=== PATIENT | female | born 1970 | race Hispanic/Latino ===

== ENCOUNTER 2019-04-10 11:40 | Emergency (ER) | payer OTHER ==
--- OUTSIDE RECORDS SUMMARY | 2019-04-10 11:45 | XMS REPORT ---
:1970 [facility] Jevon Ugarte [address] [place] [id number] Care Team Providers Name Role Phone ZI CHO Unavailable Unavailable DOMINIQUE COOL Unavailable Unavailable Problems This patient has no known problems. Allergies, Adverse Reactions, Alerts This patient has no known allergies or adverse reactions. Medications This patient has no known medications. Results Test Description Test Time Test Comments Text Results Atomic Results Result Comments POCT-ACT 2017-11-08 07:09:00 Test Item Value Reference Range Comments ACTIVATED CLOTTING TIME (BEAKER) (test 274 sec TESTED AT [facility] [address] jfma=126) [place] [address] [id number] 07:09:00 Test Item Value Reference Range Comments ACTIVATED CLOTTING TIME 290 sec TESTED AT [facility] [address] (BEAKER) (test xvem=827) [place] [address] [id number] 07:09:00 Test Item Value Reference Range Comments ACTIVATED CLOTTING TIME 285 sec [facility] [address] (BEAKER) (test qgzx=832) [place] [address] [id number] 05:31:00 Test Item Value Reference Range Comments BLOOD UREA NITROGEN (BEAKER) (test xtgo=713) 19 mg/dL 7-21 [id number] 05:31:00 Test Item Value Reference Range Comments SODIUM (BEAKER) (test rugd=218) 136 meq/L 136-145 POTASSIUM (BEAKER) (test nbct=940) 4.0 meq/L 3.5-5.1 CHLORIDE (BEAKER) (test eytp=431) 106 meq/L 98-107 CO2 (BEAKER) (test fkfo=245) 20 meq/L 22-29 [id number] 05:31:00 Test Item Value Reference Range Comments CREATININE (BEAKER) (test 1.02 mg/dL 0.57-1.25 ilyp=725) EGFR (BEAKER) (test 59 mL/min/1.73 sq m ESTIMATED GFR IS NOT chet=2092) ACCURATE CREATININE CLEARANCE IN PREDICTING GLOMERULAR FILTRATION RATE. ESTIMATED GFR IS NOT APPLICABLE FOR DIALYSIS PATIENTS. CBC (HEMOGRAM ONLY)2017-11-07 04:52:00 Test Item Value Reference Range Comments WHITE BLOOD CELL COUNT (BEAKER) (test gobb=880) 5.3 K/ L 3.5-10.5 RED BLOOD CELL COUNT (BEAKER) (test gulu=140) 3.45 M/ L 3.93-5.22 HEMOGLOBIN (BEAKER) (test wzth=759) 10.5 GM/DL 11.2-15.7 HEMATOCRIT (BEAKER) (test gaif=896) 32.5 % 34.1-44.9 MEAN CORPUSCULAR VOLUME (BEAKER) (test dzxo=107) 94.2 fL 79.4-94.8 MEAN CORPUSCULAR HEMOGLOBIN (BEAKER) (test 30.4 pg 25.6-32.2 gnek=829) MEAN CORPUSCULAR HEMOGLOBIN CONC (BEAKER) (test 32.3 GM/DL 32.2-35.5 fbpj=446) RED CELL DISTRIBUTION WIDTH (BEAKER) (test 13.3 % 11.7-14.4 jcia=186) PLATELET COUNT (BEAKER) (test deez=022) 101 K/CU MM 150-450 MEAN PLATELET VOLUME (BEAKER) (test ryfa=835) 11.6 fL 9.4-12.3 NUCLEATED RED BLOOD CELLS (BEAKER) (test 0 /100 WBC 0-0 hkwa=204) [id number] 15:23:00 Test Item Value Reference Range Comments ACTIVATED CLOTTING TIME 131 sec TESTED AT [facility] (BEAKER) (test pugv=295) [facility] [address] [id number] 06:41:00 Test Item Value Reference Range Comments MAGNESIUM (BEAKER) (test ipov=933) 2.1 mg/dL 1.6-2.6 BASIC METABOLIC [id number] 06:41:00 Test Item Value Reference Range Comments SODIUM (BEAKER) (test 136 meq/L 136-145 lrvu=236) POTASSIUM (BEAKER) (test 3.8 meq/L 3.5-5.1 zgal=425) CHLORIDE (BEAKER) (test 100 meq/L 98-107 xkbs=181) CO2 (BEAKER) (test 27 meq/L 22-29 lnmc=364) BLOOD UREA NITROGEN 18 mg/dL 7-21 (BEAKER) (test toum=229) CREATININE (BEAKER) (test 0.99 mg/dL 0.57-1.25 akzd=183) GLUCOSE RANDOM (BEAKER) 94 mg/dL 70-105 (test ukqu=966) CALCIUM (BEAKER) (test 8.9 mg/dL 8.4-10.2 afte=197) EGFR (BEAKER) (test 61 mL/min/1.73 sq m ESTIMATED GFR IS NOT kijq=4532) ACCURATE CREATININE CLEARANCE IN PREDICTING GLOMERULAR FILTRATION RATE. ESTIMATED GFR IS NOT APPLICABLE FOR DIALYSIS PATIENTS. PROTHROMBIN [id number] 06:40:00 Test Item Value Reference Range Comments PROTIME (BEAKER) (test hjzn=266) 15.5 seconds 11.7-14.7 INR (BEAKER) (test vnrz=826) 1.2 <=5.9 RECOMMENDED COUMADIN/WARFARIN INR THERAPY RANGESSTANDARD DOSE: 2.0 - 3.0 Includes: PROPHYLAXIS forvenous thrombosis, systemic embolization; TREATMENT for venous thrombosis and/or pulmonary embolus.HIGH RISK: Target INR is 2.5-3.5 for patients with mechanical heart valves.Within 24 hours, if on CoumadinCBC ( HEMOGRAM ONLY)2017-11-06 06:29:00 Test Item Value Reference Range Comments WHITE BLOOD CELL COUNT (BEAKER) (test acgr=611) 3.5 K/ L 3.5-10.5 RED BLOOD CELL COUNT (BEAKER) (test qmlf=503) 3.76 M/ L 3.93-5.22 HEMOGLOBIN (BEAKER) (test cwee=564) 11.3 GM/DL 11.2-15.7 HEMATOCRIT (BEAKER) (test uwwx=346) 34.9 % 34.1-44.9 MEAN CORPUSCULAR VOLUME (BEAKER) (test ihup=078) 92.8 fL 79.4-94.8 MEAN CORPUSCULAR HEMOGLOBIN (BEAKER) (test 30.1 pg 25.6-32.2 gufq=410) MEAN CORPUSCULAR HEMOGLOBIN CONC (BEAKER) (test 32.4 GM/DL 32.2-35.5 mvcs=051) RED CELL DISTRIBUTION WIDTH (BEAKER) (test 13.3 % 11.7-14.4 mpkk=396) PLATELET COUNT (BEAKER) (test vxyg=228) 129 K/CU MM 150-450 MEAN PLATELET VOLUME (BEAKER) (test msub=188) 11.5 fL 9.4-12.3 NUCLEATED RED BLOOD CELLS (BEAKER) (test 0 /100 WBC 0-0 sbnc=968) CT, HEART, [id number] 18:09:00Reason for exam:->a-fibAddendum BeginsREPORT STATUS:A ADDENDUM: Study reviewed by radiology. Agree with the nonvascular findings as described below. Signed: Nitesh Saini MDReport Verified Date/Time: 11/05/2017 18:09:37 Reading Location: [place] [address] Angio Body Reading RoomAddendum EndsFINAL REPORT CT angiography of the pulmonary veins, 05 November 2017 INDICATION: This is 46 years old female with history of atrial fibrillation, and Tetralogy of Fallot, presented here for pulmonary vein ostial mapping. This study is performed in an attempt to avoid invasive procedure. TECHNIQUE: Spiral acquisition during intravenous contrast administration using a Daniela multidetector multislice cardiac CT scanner without prospective ECG triggering. Multiplanar reconstructions were performed interactively by the interpreting physician using an independent ([employer]) workstation. Pleaserefer to the contrast sheet scanned in the EPIC system for the amount and route of contrast given. This exam was performed according to our departmental dose-optimisation programme, which includes automated exposure control, adjustment of the mA and/or kV according to patient size and/or use of iterative reconstruction technique. Dose modulation, iterative reconstruction, and/or weight based adjustment of the mA/kV was utilized to reduce the radiation dose to as low as reasonably achievable. FINDINGS: VASCULAR: The pericardium appears normal. No pericardial effusion is identified. The central pulmonary artery is normal in calibre. There is no evidence of central pulmonary artery embolism. The thoracic aorta is normal in course, calibre, and contour. No ectasia or aneurysmal dilation is identified. The aortic arch is left sided. There is no evidence for acute aortic pathology. The arch vessel branching pattern is normal, and the origins of the arch branch vessels are all widely patent. The left common carotid artery arises from the normal artery, common variant. This study is a dedicated pulmonary vein study and no dynamic data is provided. No obvious VSD is identified in the repair site is likely located at image 81 of the pulmonary veins sequence. Correlate with echocardiography. The cardiac chambers demonstrate normal atrioventricular and ventriculoarterial concordance, and systemic andpulmonary venous return. The left ventricle is normal in size, and no abnormal mass is identified.Patient has a diagnosis of tetralogy. In this examination, by visual estimation, the right ventricleis smaller in size than the left ventricle. No obvious right ventricular hypertrophy is identified. Finally, some artefact is identified in the right ventricular outflow tract, suggesting prior repair.Finally, the central pulmonary artery is not prominent. The coronary artery origins are normal. No evidence of anomalous coronary artery origin is identified. This is a nongated examination, however, no obvious coronary artery calcification is identified. No coronary calcification is present. The leftatrium is mildly prominent. Right atrial prominence is identified. The IVC and hepatic veins also prominent. No thrombus is visualized in the left atrial appendage. Pulmonary vein morphology is normal with pairs of pulmonary veins on each side of the left atrium. There is no evidence for pulmonary vein stenosis. Quantitative pulmonary vein ostial mapping (measured utilizing MPR analysis) is as follows: Pulmonary vein Major axis Minor axis Cross-sectional area Right upper 22 mm 14 mm 2.5 fi5Ftrvx lower 21 mm 20 mm 3.3 pj0Kvyp upper 14 mm 9 mm 1.1 fw3Hjaw lower 2.mm 10 mm 1.8 cm2 NON-VASCULAR: The visualised thyroid gland appears unremarkable. The chestwall and mediastinum appears normal. Patient is post median sternotomy. The RV free wall is immediately behind the sternum, for example image 34 of the full [id number] series. No significant adenopathy is identified in the mediastinum. In the lung windows, no obvious endobronchial lesion is seen, and no pleural effusion is identified. Four, no suspicious pulmonary nodule is noted. Limited images of the upper abdomen reveals no gross abnormality. No acute bony pathology is identified. IMPRESSIONS: 1. Left atrial enlargement is identified. The left atrial appendage is well seen and no thrombus is identified. The left atrial appendage morphologies chicken wing. Normal coronary artery origins. 2. Patient is post Tetralogy of Fallot repair. Interestingly, the RV appears not to be dilated. No obvious RV age is identified. Right atrial prominence is noted as well as prominence of the IVC and hepatic veins. Artifact is seen likely represent prior repair at the level of the right ventricular outflow tract. Finally, the prior VSD repair site is identified, at image 81 of the pulmonary veins series; the repair site is somewhat prominent/dilated. Correlate with echocardiography. No obvious shunting is identified though no dynamic data is provided. 2. Pulmonary vein morphology is normal with pairs of pulmonary veins bilaterally. There is no evidence for pulmonary vein stenosis. Quantitative pulmonary vein ostial mapping is as noted above. 3. Normal thoracic aorta. Left sided aortic arch. No ectasia or aneurysmal dilation is identified. 4. No acute pulmonary pathology. 5. Other findings as described above. 6. An addendum will be dictated regarding the non-vascular findings by the [facility] Radiologist. Signed: Edwin Garcia Verified Date/Time: 11/05/2017 09:20:25 Reading Location: [place] [address] Cardiology MRI [id number] 14:01:00 Test Item Value Reference Range Comments MAGNESIUM (BEAKER) (test 2.2 mg/dL 1.6-2.6 Specimen slightly hemolyzed tmqz=700) BASIC METABOLIC [id number] 21:59:00 Test Item Value Reference Range Comments SODIUM (BEAKER) (test 139 meq/L 136-145 fgba=237) POTASSIUM (BEAKER) (test 3.8 meq/L 3.5-5.1 Specimen slightly qvli=701) hemolyzed CHLORIDE (BEAKER) (test 108 meq/L 98-107 cegp=131) CO2 (BEAKER) (test 22 meq/L 22-29 nkpf=432) BLOOD UREA NITROGEN 14 mg/dL 7-21 (BEAKER) (test wrgk=897) CREATININE (BEAKER) (test 0.79 mg/dL 0.57-1.25 Specimen slightly hjvy=188) hemolyzed GLUCOSE RANDOM (BEAKER) 86 mg/dL 70-105 (test rbcx=926) CALCIUM (BEAKER) (test 8.5 mg/dL 8.4-10.2 qiut=210) EGFR (BEAKER) (test 79 mL/min/1.73 sq m ESTIMATED GFR IS NOT pgje=2749) ACCURATE CREATININE CLEARANCE IN PREDICTING GLOMERULAR FILTRATION RATE. ESTIMATED GFR IS NOT APPLICABLE FOR DIALYSIS PATIENTS. CBC W/PLT COUNT & AUTO [id number] 21:42:00 Test Item Value Reference Range Comments WHITE BLOOD CELL COUNT (BEAKER) (test srdp=726) 3.7 K/ L 3.5-10.5 RED BLOOD CELL COUNT (BEAKER) (test zzvm=112) 3.92 M/ L 3.93-5.22 HEMOGLOBIN (BEAKER) (test jvbb=114) 12.4 GM/DL 11.2-15.7 HEMATOCRIT (BEAKER) (test pcwp=722) 38.5 % 34.1-44.9 MEAN CORPUSCULAR VOLUME (BEAKER) (test yjqw=621) 98.2 fL 79.4-94.8 MEAN CORPUSCULAR HEMOGLOBIN (BEAKER) (test 31.6 pg 25.6-32.2 htsh=437) MEAN CORPUSCULAR HEMOGLOBIN CONC (BEAKER) (test 32.2 GM/DL 32.2-35.5 dgnu=473) RED CELL DISTRIBUTION WIDTH (BEAKER) (test 16.3 % 11.7-14.4 azej=238) PLATELET COUNT (BEAKER) (test benw=436) 116 K/CU MM 150-450 MEAN PLATELET VOLUME (BEAKER) (test tlju=469) 11.4 fL 9.4-12.3 NUCLEATED RED BLOOD CELLS (BEAKER) (test 0 /100 WBC 0-0 xpoh=819) NEUTROPHILS RELATIVE PERCENT (BEAKER) (test 62 % ufiv=952) LYMPHOCYTES RELATIVE PERCENT (BEAKER) (test 29 % yoit=968) MONOCYTES RELATIVE PERCENT (BEAKER) (test 7 % wssv=758) EOSINOPHILS RELATIVE PERCENT (BEAKER) (test 1 % jumr=170) BASOPHILS RELATIVE PERCENT (BEAKER) (test 1 % tiwn=956) NEUTROPHILS ABSOLUTE COUNT (BEAKER) (test 2.26 K/ L 1.56-6.13 xgkz=538) LYMPHOCYTES ABSOLUTE COUNT (BEAKER) (test 1.06 K/ L 1.18-3.74 atru=774) MONOCYTES ABSOLUTE COUNT (BEAKER) (test 0.25 K/ L 0.24-0.36 ujef=874) EOSINOPHILS ABSOLUTE COUNT (BEAKER) (test 0.04 K/ L 0.04-0.36 mslx=263) BASOPHILS ABSOLUTE COUNT (BEAKER) (test 0.04 K/ L 0.01-0.08 eqvp=677) IMMATURE GRANULOCYTES-RELATIVE PERCENT (BEAKER) 0 % 0-1 (test gpib=9849) [id number] 05:25:00 Test Item Value Reference Range Comments PROTIME (BEAKER) (test pooi=186) 21.2 seconds 11.7-14.7 INR (BEAKER) (test pbyj=659) 1.8 <=5.9 PARTIAL THROMBOPLASTIN TIME (BEAKER) (test 40.9 seconds 22.5-36.0 qqbn=248) RECOMMENDED COUMADIN/WARFARIN INR THERAPY RANGESSTANDARD DOSE: 2.0 - 3.0 Includes: PROPHYLAXIS forvenous thrombosis, systemic embolization; TREATMENT for venous thrombosis and/or pulmonary embolus.HIGH RISK: Target INR is 2.5-3.5 for patients with mechanical heart valves.PROTHROMBIN TIME/[id number] 05:23: 00 Test Item Value Reference Range Comments PROTIME (BEAKER) (test azip=441) 21.2 seconds 11.7-14.7 INR (BEAKER) (test paam=733) 1.8 <=5.9 RECOMMENDED COUMADIN/WARFARIN INR THERAPY RANGESSTANDARD DOSE: 2.0 - 3.0 Includes: PROPHYLAXIS forvenous thrombosis, systemic embolization; TREATMENT for venous thrombosis and/or pulmonary embolus.HIGH RISK: Target INR is 2.5-3.5 for patients with mechanical heart valves.[id number] 18:15:00 Test Item Value Reference Range Comments MAGNESIUM (BEAKER) (test ldqc=452) 2.2 mg/dL 1.6-2.6 BASIC METABOLIC [id number] 18:15:00 Test Item Value Reference Range Comments SODIUM (BEAKER) (test 140 meq/L 136-145 hecs=074) POTASSIUM (BEAKER) (test 3.6 meq/L 3.5-5.1 qgzz=932) CHLORIDE (BEAKER) (test 107 meq/L 98-107 ttdy=798) CO2 (BEAKER) (test 26 meq/L 22-29 wslb=050) BLOOD UREA NITROGEN 19 mg/dL 7-21 (BEAKER) (test wdnm=177) CREATININE (BEAKER) (test 0.90 mg/dL 0.57-1.25 agnn=748) GLUCOSE RANDOM (BEAKER) 93 mg/dL 70-105 (test ldqo=452) CALCIUM (BEAKER) (test 9.2 mg/dL 8.4-10.2 atlm=775) EGFR (BEAKER) (test 68 mL/min/1.73 sq m ESTIMATED GFR IS NOT utsv=3445) ACCURATE CREATININE CLEARANCE IN PREDICTING GLOMERULAR FILTRATION RATE. ESTIMATED GFR IS NOT APPLICABLE FOR DIALYSIS PATIENTS. CBC W/PLT COUNT & AUTO [id number] 17:35:00 Test Item Value Reference Range Comments WHITE BLOOD CELL COUNT (BEAKER) (test ghfg=360) 5.0 K/ L 3.5-10.5 RED BLOOD CELL COUNT (BEAKER) (test uyse=648) 4.12 M/ L 3.93-5.22 HEMOGLOBIN (BEAKER) (test bsac=911) 11.9 GM/DL 11.2-15.7 HEMATOCRIT (BEAKER) (test xaby=861) 36.4 % 34.1-44.9 MEAN CORPUSCULAR VOLUME (BEAKER) (test ybuu=498) 88.3 fL 79.4-94.8 MEAN CORPUSCULAR HEMOGLOBIN (BEAKER) (test 28.9 pg 25.6-32.2 puej=087) MEAN CORPUSCULAR HEMOGLOBIN CONC (BEAKER) (test 32.7 GM/DL 32.2-35.5 zwhn=218) RED CELL DISTRIBUTION WIDTH (BEAKER) (test 12.6 % 11.7-14.4 orzc=027) PLATELET COUNT (BEAKER) (test dqfb=723) 143 K/CU MM 150-450 MEAN PLATELET VOLUME (BEAKER) (test wrwd=088) 12.0 fL 9.4-12.3 NUCLEATED RED BLOOD CELLS (BEAKER) (test 0 /100 WBC 0-0 gkuj=765) NEUTROPHILS RELATIVE PERCENT (BEAKER) (test 69 % udam=320) LYMPHOCYTES RELATIVE PERCENT (BEAKER) (test 22 % hykm=653) MONOCYTES RELATIVE PERCENT (BEAKER) (test 7 % kefj=824) EOSINOPHILS RELATIVE PERCENT (BEAKER) (test 1 % ihgj=195) BASOPHILS RELATIVE PERCENT (BEAKER) (test 1 % wtxe=625) NEUTROPHILS ABSOLUTE COUNT (BEAKER) (test 3.47 K/ L 1.56-6.13 taqn=175) LYMPHOCYTES ABSOLUTE COUNT (BEAKER) (test 1.12 K/ L 1.18-3.74 snuu=795) MONOCYTES ABSOLUTE COUNT (BEAKER) (test 0.35 K/ L 0.24-0.36 ncux=194) EOSINOPHILS ABSOLUTE COUNT (BEAKER) (test 0.03 K/ L 0.04-0.36 mgap=986) BASOPHILS ABSOLUTE COUNT (BEAKER) (test 0.03 K/ L 0.01-0.08 uuhm=307) IMMATURE GRANULOCYTES-RELATIVE PERCENT (BEAKER) 0 % 0-1 (test uluo=0745)
[2019-04-10] MEDS ORDERED: NA CHLORIDE 0.9% 1,000 ML ONE (12:18)
[2019-04-10] MEDS ORDERED: ONDANSETRON 4 MG/2 ML VIAL ONE (12:18)
[2019-04-10 12:37] LABS: Absolute Lymphocytes (CBC) 0.8 K/uL (0.7-4.9); Basophils % 1.5 % (0-1.3); Hematocrit 38.1 % (36.0-45.0); Lymphocytes % 22.4 % (15.3-44.8); MPV 10.4 fL (7.6-11.3); RBC Red Blood Cell Count 4.15 M/uL (3.86-4.86)
[2019-04-10 12:43] LABS: Protime INR 1.21
[2019-04-10 12:50] LABS: Potassium 3.7 mmol/L (3.5-5.1)
[2019-04-10 12:53] LABS: Urine Blood TRACE (NEG); Urine Glucose NEGATIVE (NEG); Urine Protein TRACE (NEG); Urine Specific Gravity 1.025 (1.005-1.030); Urine pH 5.5 (5.0-7.0)
--- NOTE | 2019-04-10 13:21 | RAD REPORT ---
EXAM DESCRIPTION: US - Abdomen Exam Limited - 04/10/2019 1:03 pm CLINICAL HISTORY: ABD PAIN COMPARISON: Abdomen Exam Complete dated 10/08/2015 FINDINGS: Several small mobile gallstones are identified similar to the 2016 study. Gallbladder wall is slightly thickened and there is a small amount of pericholecystic fluid present. Correlation is n eeded with any acute cholecystitis exam findings. No common duct stone or biliary tree dilatation identified. IMPRESSION: Gallstones, wall thickening and pericholecystic fluid. Correlation is needed with clinic al findings of acute cholecystitis. No duct stone or biliary tree dilatation.
--- NOTE | 2019-04-10 13:40 | RAD REPORT ---
EXAM DESCRIPTION: CT - Abdomen Pelvis W Contrast - 04/10/2019 1:13 pm CLINICAL HISTORY: ABD PAIN, patient indicates right upper abdominal pain and nausea for 1 week COMPARISON: CT study August 2011, ultrasound study April 10, 2019 TECHNIQUE: Biphasic, helical CT imaging of the abdomen and pelvis was performed following 100 ml non -ionic IV contrast. No oral contrast. All CT scans are performed using dose optimization technique as appropriate and may include automated exposure control or mA/KV adjustment according to patient size. FINDINGS: Small right pleural effusion is present. Cardiomegaly is present. No pericardial thickenin g or effusion. A heterogeneous, mottled enhancement pattern is seen in the liver. Central hepatic veins are enlarged . IVC is dilated extending into the right atrium. Hepatic vein enlargement is progressive from 2011. Mottled liver enhancement pattern is likely the affects of diminished cardiac function. A focal liver lesion is not seen. No splenomegaly or focal splenic finding. No pancreatic or peripancreatic acute finding. Multiple gallstones are identified. There is gallbladder wall thickening and pericholecystic fluid. Patient has a small amount of ascites around the liver and spleen. Small amount of fluid collects in the dependent portion of the pelvis. Renal function is symmetric. No pyelonephritis or acute parenchymal process. Renal parenchymal enhanc ement pattern would also indicate a decrease in cardiac function. No solid mass lesion. Contracted ur inary bladder shows no gross abnormality. No adrenal abnormalities. No dilated bowel. No focal bowel wall thickening or mass. Appendicitis is not suspected. No free air or pneumatosis. No hernia, mass or bulky lymphadenopathy. Uterus is slightly lobulated probably from small fibroids. Primary ovarian process is not suspected. Prominent veins are seen in the pelvis. No suspicious bony findings. IMPRESSION: Cholelithiasis, gallbladder wall thickening and pericholecystic fluid. Correlation is ne eded with any acute cholecystitis clinical findings. Patient does have a small right pleural effusion and a small amount of ascites which may be unrelated to the gallbladder and could explain the pericholecystic fluid. Mottled enhancement pattern of the liver and dilated hepatic veins and IVC likely reflecting right-si de heart failure. Correlation is needed with clinical findings of diminished cardiac function. No acute or GI finding.
[2019-04-10] MEDS ORDERED: METRONIDAZOLE 500mg IVPB 500 MG/100 ML BAG IV ONE (14:08)
[2019-04-10] MEDS ORDERED: FENTANYL CITR 100 MCG/2 ML ONE (14:08)
[2019-04-10] MEDS ORDERED: CEFTRIAXONE/SWI 1gm 1 GM/10 ML SYR ONE (14:08)
--- NOTE | 2019-04-10 15:06 | ER ---
Nurse's Notes [facility] Name: Stephany Dominguez Age: 48 yrs Sex: Female : 1970 Arrival Date: 04/10/2019 Time: 11:42 Bed 8 Private MD: Una Jeffery K Diagnosis: Acute cholecystitis Presentation: 04/10 11:49 Presenting complaint: Patient states: Dr. Jeffery sent pt cynthia to right upper abdominal [facility] pain and nausea that started last week, "When I laid down I got a real bad right back and shoulder pain. and I feel really tired." Note from Dr. Jeffery states "Pt with hx of a. fib, tetralogy of Fallot repair, anemia, now with abdominal pain and swelling, weakness, and rapid HR". Transition of care: patient was received from another setting of care (ambulatory primary care physician practice), Dr. Jeffery. Onset of symptoms was April 04, 2019. Risk Assessment: Do you want to hurt yourself or someone else? Patient reports no desire to harm self or others. Initial Sepsis Screen: Does the patient meet any 2 criteria? No. Patient's initial sepsis screen is negative. Does the patient have a suspected source of infection? No. Patient's initial sepsis screen is negative. Care prior to arrival: None. 11:49 Method Of Arrival: Ambulatory [facility] 11:49 Acuity: REG 3 jl7 Triage Assessment: 12:00 General: Appears in no apparent distress. uncomfortable, Behavior is cooperative, bp appropriate for age, anxious. Pain: Complains of pain in right upper quadrant. EENT: No deficits noted. Neuro: No deficits noted. Cardiovascular: No deficits noted. Respiratory: No deficits noted. GI: Reports upper abdominal pain. : No signs and/or symptoms were reported regarding the genitourinary system. Derm: No deficits noted. Musculoskeletal: No deficits noted. 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 - Social history:: Smoking status: Patient/guardian denies using tobacco. - Ebola Screening: : No symptoms or risks identified at this time. - Family history:: not pertinent. - Hospitalizations: : No recent hospitalization is reported. Screenin:04 Abuse screen: Denies threats or abuse. Denies injuries from another. Nutritional bp screening: No deficits noted. Tuberculosis screening: No symptoms or risk factors identified. Fall Risk None identified. Assessment: 12:00 General: SEE TRIAGE NOTE. bp 14:00 Reassessment: PT RETURNED FROM [place] AND [place]. AT [facility]. bp 15:04 Reassessment: TRANSFER PENDING. VS STABLE. bp 16:18 Reassessment: REPORT CALLED TO LUIS TANG AT [facility]. TRANSPORT PENDING. bp 17:31 Reassessment: EMS AT [facility] FOR TRANSPORT. bp Vital Signs: 11:54 BP 98 / 84; Pulse 114; Resp 19 S; Temp 97.6(O); Pulse Ox 96% on R/A; Weight 70.76 kg jl7 (R); Height 5 ft. 6 in. (167.64 cm) (R); Pain 4/10; 14:03 BP 123 / 88; Pulse 66; Resp 17; Pulse Ox 98% ; bp 15:03 BP 120 / 90; Pulse 100; Resp 16; Pulse Ox 99% ; bp 16:18 BP 123 / 83; Pulse 115; Resp 18; Pulse Ox 99% ; bp 17:32 BP 109 / 87; Pulse 97; Resp 16; Temp 98; Pulse Ox 97% ; bp 11:54 Body Mass Index 25.18 (70.76 kg, 167.64 cm) 7 ED Course: 11:42 Patient arrived in ED. ag5 11:42 Una Jeffery MD is Private Physician. ag5 11:54 Triage completed. jl7 11:54 Arm band placed on right wrist. jl7 12:04 Herber Kevin MD is Attending Physician. rn 12:11 Tomasz Slade, CLYDE is Primary Nurse. bp 12:20 Initial lab(s) drawn, by va, sent to lab. T\\T\\S collected, blood band applied to patient. dh3 Inserted saline lock: 20 gauge in right antecubital area, using aseptic technique. Blood collected. 12:41 EKG done, by explosive technician. reviewed by Herber Kevin MD. at1 12:57 US Abdomen Limited In Process Unspecified. EDMS 13:14 CT Abd/Pelvis - IV Contrast Only In Process Unspecified. EDMS 14:04 Patient has correct armband on for positive identification. Placed in gown. Bed in low bp position. Call light in reach. Side rails up X2. 16:18 No provider procedures requiring assistance completed. Patient transferred, IV remains bp in place. Administered Medications: 14:00 Drug: Zofran 4 mg Route: IVP; Site: right antecubital; bp 16:20 Follow up: Response: Nausea is decreased bp 14:00 Drug: NS 0.9% 500 ml Route: IV; Rate: bolus; Site: right antecubital; bp 16:20 Follow up: IV Status: Completed infusion; IV Intake: 500ml bp 14:00 Drug: NS 0.9% 500 ml Route: IV; Rate: bolus; Site: right antecubital; bp 16:20 Follow up: IV Status: Completed infusion; IV Intake: 500ml bp 14:10 Drug: Rocephin 1 grams Route: IV; Rate: calculated rate; Site: right antecubital; bp 16:20 Follow up: IV Status: Completed infusion; IV Intake: 50ml bp 14:10 Drug: Flagyl 500 mg Volume: 100 ml; Route: IVPB; Rate: 200 ml/hr; Infused Over: 30 bp mins; Site: right antecubital; 16:19 Follow up: IV Status: Completed infusion; IV Intake: 100ml bp 14:10 Drug: fentaNYL (PF) 25 mcg Route: IVP; Site: right antecubital; bp 16:19 Follow up: Response: Pain is decreased bp Intake: 16:19 IV: 100ml; Total: 100ml. bp 16:20 IV: 50ml; Total: 150ml. bp 16:20 IV: 500ml; Total: 650ml. bp 16:20 IV: 500ml; Total: 1150ml. bp Outcome: 15:04 ER care complete, transfer ordered by rn 16:18 Transferred by ground EMS to [facility], Transfer form completed. bp 16:18 Condition: stable 16:18 Instructed on the need for transfer. 17:32 Patient left the ED. bp Signatures: Dispatcher [employer] EDHerber Myers MD MD rn Magda Bass, appointment coordinator EKG Tat1 Pj Owens RN RN 7 Kristina Gregory 3 Tomasz Slade RN RN bp Joselyn Arambula ag5 Corrections: (The following items were deleted from the chart) 15:06 15:04 Reassessment: ADMIT PENDING. VS STABLE bp bp
--- NOTE | 2019-04-10 15:06 | EDPHYS ---
Physician Documentation [facility] Name: Stephany Dominguez Age: 48 yrs Sex: Female : 1970 Arrival Date: 04/10/2019 Time: 11:42 Bed 8 Private MD: Una Jeffery K ED Physician Herber Kevin HPI: 04/10 12:15 This 48 yrs old Female presents to ER via Ambulatory with complaints of rn Abdominal Pain, General Weakness. 12:15 The patient presents with abdominal pain in the epigastric area, in the right upper rn quadrant. Onset: The symptoms/episode began/occurred 1 week(s) ago. The symptoms do not radiate. Associated signs and symptoms: Pertinent positives: nausea, Pertinent negatives: blood in stools, chest pain, constipation, diarrhea, dysuria, fever, shortness of breath, vomiting blood. The symptoms are described as sharp, stabbing. Modifying factors: The symptoms are alleviated by nothing, the symptoms are aggravated by touching the area. Severity of pain: At its worst the pain was moderate in the emergency department the pain has improved. The patient has not experienced similar symptoms in the past. The patient has not recently seen a physician. Reports abdominal pain, RUQ and epigastric, episodic for 1 week, assoc with nausea, no fever/vomiting/diarrhea. Denies chest pain/sob/palpitations.. INFORMATICS PHYSICIAN LIAISON: 11:54 LMP N/A - Post-menopause jl7 Historical: - Allergies: 11:54 No Known Allergies; jl7 - Home Meds: 11:54 Furosemide Oral [Active]; Metoprolol Tartrate Oral [Active]; jl7 - PMHx: 11:54 Atrial Fib; Congenital Heart Disease; jl7 - PSHx: 11:54 Heart Sx; Pulmonary Valve replacement; jl7 - Immunization history:: Adult Immunizations not up to date. - Social history:: Smoking status: Patient/guardian denies using tobacco. - Ebola Screening: : No symptoms or risks identified at this time. - Family history:: not pertinent. - Hospitalizations: : No recent hospitalization is reported. ROS: 12:19 Constitutional: Negative for fever, chills, and weight loss, Eyes: Negative for injury, rn pain, redness, and discharge, Cardiovascular: Negative for chest pain, palpitations, and edema, Respiratory: Negative for shortness of breath, cough, wheezing, and pleuritic chest pain, Abdomen/GI: Negative for vomiting, diarrhea, and constipation, MS/Extremity: Negative for injury and deformity, Skin: Negative for injury, rash, and discoloration, Neuro: Negative for headache, weakness, numbness, tingling, and seizure. Exam: 12:19 Constitutional: This is a well developed, well nourished patient who is awake, alert, rn and in no acute distress. Head/Face: Normocephalic, atraumatic. ENT: MMM Cardiovascular: Tachycardic, regular Respiratory: No increased work of breathing, no retractions or nasal flaring. Abdomen/GI: soft, + tender RUQ and epigastric region MS/ Extremity: Pulses equal, no cyanosis. Neurovascular intact. Full, normal range of motion. Equal circumference. Neuro: Awake and alert, GCS 15 12:28 ECG was reviewed by the Attending Physician. rn Vital Signs: 11:54 BP 98 / 84; Pulse 114; Resp 19 S; Temp 97.6(O); Pulse Ox 96% on R/A; Weight 70.76 kg jl7 (R); Height 5 ft. 6 in. (167.64 cm) (R); Pain 4/10; 14:03 BP 123 / 88; Pulse 66; Resp 17; Pulse Ox 98% ; bp 15:03 BP 120 / 90; Pulse 100; Resp 16; Pulse Ox 99% ; bp 16:18 BP 123 / 83; Pulse 115; Resp 18; Pulse Ox 99% ; bp 17:32 BP 109 / 87; Pulse 97; Resp 16; Temp 98; Pulse Ox 97% ; bp 11:54 Body Mass Index 25.18 (70.76 kg, 167.64 cm) 7 MDM: 12:04 Patient medically screened. rn 14:21 ED course: Pt with acute cholecystitis, spoke with patient who requests transfer to [facility] given her history and possible complications. Transfer initiated.. 15:03 Differential diagnosis: cholecystitis, Cholelithiasis, gastritis, gastroesophageal rn reflux disease, non-specific abd pain, pancreatitis, Peptic Ulcer Disease. Data reviewed: vital signs, nurses notes, lab test result(s), radiologic studies, CT scan, ultrasound, and as a result, I will admit patient. Counseling: I had a detailed discussion with the patient and/or guardian regarding: the historical points, exam findings, and any diagnostic results supporting the discharge/admit diagnosis, lab results, radiology results, the need for further work-up and treatment in the hospital, the need to transfer to another facility, for higher level of care. ED course: Accepted for transfer to [facility], arranging transport. Abx given, Stable, normal vitals. . 04/10 12:10 Order name: Abo/rh Typing; Complete Time: 13:17 rn 04/10 12:10 Order name: Basic Metabolic Panel; Complete Time: 13:17 rn 04/10 12:10 Order name: CBC with Diff; Complete Time: 13:17 rn 04/10 12:18 Order name: Protime (+inr); Complete Time: 13:17 rn 04/10 12:18 Order name: Ptt, Activated; Complete Time: 13:17 rn 04/10 12:48 Order name: Urine Dipstick--Ancillary (enter results); Complete Time: 13:17 em1 04/10 12:10 Order name: US Abdomen Limited; Complete Time: 13:55 rn 04/10 12:10 Order name: CT Abd/Pelvis - IV Contrast Only; Complete Time: 13:55 rn 04/10 12:48 Order name: Urine --Ancillary (enter results); Complete Time: 13:17 em1 05 15:15 Order name: LFT's; Complete Time: 16:14 rn 04/10 12:10 Order name: Urine Test (obtain specimen); Complete Time: 12:45 rn 04/10 12:10 Order name: IV Saline Lock; Complete Time: 12:34 rn 04/10 12:10 Order name: Labs collected and sent; Complete Time: 12:34 rn 04/10 12:10 Order name: NPO; Complete Time: 12:18 rn 04/10 12:10 Order name: Urine Dipstick-Ancillary (obtain specimen); Complete Time: 12:45 rn 04/10 15:49 Order name: EKG Electrocardiogram EDPA EC:28 Rate is 104 beats/min. Rhythm is regular. QRS [place] is Normal. SD interval is normal. rn QRS interval is prolonged at 150 msec. QT interval is normal. No Q waves. T waves are Normal. No ST changes noted. Clinical impression: Sinus tachycardia. Interpreted by me. Reviewed by me. Administered Medications: 14:00 Drug: Zofran 4 mg Route: IVP; Site: right antecubital; bp 16:20 Follow up: Response: Nausea is decreased bp 14:00 Drug: NS 0.9% 500 ml Route: IV; Rate: bolus; Site: right antecubital; bp 16:20 Follow up: IV Status: Completed infusion; IV Intake: 500ml bp 14:00 Drug: NS 0.9% 500 ml Route: IV; Rate: bolus; Site: right antecubital; bp 16:20 Follow up: IV Status: Completed infusion; IV Intake: 500ml bp 14:10 Drug: Rocephin 1 grams Route: IV; Rate: calculated rate; Site: right antecubital; bp 16:20 Follow up: IV Status: Completed infusion; IV Intake: 50ml bp 14:10 Drug: Flagyl 500 mg Volume: 100 ml; Route: IVPB; Rate: 200 ml/hr; Infused Over: 30 bp mins; Site: right antecubital; 16:19 Follow up: IV Status: Completed infusion; IV Intake: 100ml bp 14:10 Drug: fentaNYL (PF) 25 mcg Route: IVP; Site: right antecubital; bp 16:19 Follow up: Response: Pain is decreased bp Disposition: 04/10/19 15:04 Transfer ordered to [facility]. Diagnosis is Acute cholecystitis. - Reason for transfer: Higher level of care. - Accepting physician is Dr. Schmitz. - Condition is Stable. - Problem is new. - Symptoms have improved. Signatures: Dispatcher [employer] EDPA Herber Kevin MD MD rn Leal, Jahala, RN RN jl7 Tomasz Slade RN RN bp Corrections: (The following items were deleted from the chart) 17:32 15:04 04/10/2019 15:04 Transfer ordered to [facility]. Diagnosis is bp Acute cholecystitis. Reason for transfer: Higher level of care. Accepting physician is Dr. Schmitz. Condition is Stable. Problem is new. Symptoms have improved. rn
[2019-04-10 15:59] LABS: Albumin 4.1 g/dL (3.4-5.0); Bilirubin Direct 0.6 mg/dL (0-0.2); Bilirubin Total 1.6 mg/dL (0.2-1.0); Protein, Total 7.7 g/dL (6.4-8.2)
[2019-04-10 17:54] VITALS: BP 109/87; TEMP 98; O2SAT 97
--- NOTE | 2019-04-10 22:55 | EKG ---
Test Date: 2019-04-10 Test Time: 12:10:54 Information Technology Data Analyst: NEYMAR MEASUREMENT RESULTS: Intervals: Rate: 104 MD: 128 QRSD: 150 QT: 424 QTc: 557 [place]: P: MD: 128 QRS: 64 T: 79 INTERPRETIVE STATEMENTS: Sinus tachycardia Right bundle branch block Abnormal ECG Compared to ECG 04/09/2017 12:44:21 Atrial fibrillation no longer present Ventricular premature complex(es) no longer present Electronically Signed On 04-10-19 22:55:15 HOSTESS by Luis Taylor
== END 2019-04-10 17:32 | disposition short-term general hospital (02) ==
LOC: ER 11:40
DX: K81.0 Acute cholecystitis (principal); I48.91 Unspecified atrial fibrillation; Q24.9 Congenital malformation of heart, unspecified; Z95.4 Presence of other heart-valve replacement
CPT/HCPCS: 96365; 96368; 93005; 85025; 80048; 36415; 86900; 81025; 85610; 86901; 80076; 85730; 81003; 74177; 76705; 96375; 99285; 96366; Q9967; J3010; J0696; J7030; J2405